=== PATIENT | male | born 1985 | race Two or more races ===

== ENCOUNTER 2017-11-24 20:36 | Emergency (ER) | payer BC, SELFPAY ==
[2017-11-24 20:38] VITALS: BP 112/89; PULSE 75; RESP 16; TEMP 36.6; O2SAT 98; BMI 21.4
[2017-11-24 21:00] LABS: Mucous, Urine 0 SEEN /hpf (<or=2+); Red Blood Cells-Urine 0 SEEN /hpf (0-5); Squamous Epithelial Cells - UA 0 SEEN /hpf (0-5)
[2017-11-24 21:02] LABS: Color, Urine Yellow (Yellow); Glucose, Dipstick Normal (Normal); Ketone-Dipstick 15 mg/dl (Negative); Leukocyte Esterase-Dipstick 25 /ul (Negative); Nitrite-Dipstick Negative (Negative); Occult Blood-Urine Negative /ul (Negative); Protein-Dipstick 15 mg/dl (Negative); Urine Bilirubin Dipstick Negative (Negative); Urine Clarity Sl. Cloudy (Clear); Urine Urobilinogen Normal (Normal)
[2017-11-24 21:10] LABS: Bacteria RARE /hpf (None Seen); White Blood Cells 0-5 SEEN /hpf (0-5)
--- NOTE | 2017-11-24 21:14 | CT_ITS ---
STUDY: CT ABDOMEN AND PELVIS WITH CONTRAST REASON FOR EXAM: Male, 32 years old. Mid upper abdominal pain. Nausea and vomiting. RADIATION DOSAGE (If Supplied By Facility): CTDIvol = ( 11.11 ) mGy, DLP = ( 443.51 ) mGycm TECHNIQUE: Transaxial images were obtained from the dome of the diaphragm to the symphysis pubis with oral contrast. 100ML ml of Isovue 300 contrast was administered. Sagittal and coronal images were reconstructed. # Of Images Including Paperwork: 337 Individualized dose optimization techniques were used for this CT. COMPARISON: None. FINDINGS: The visualized lung bases are unremarkable. The visualized portions of the heart are within normal limits. Normal liver. Normal gallbladder and extrahepatic biliary system. Normal spleen. Normal pancreas. Normal bilateral adrenal glands. Normal right kidney. Normal left kidney. Normal visualized stomach. Assessment of the stomach is limited by incomplete distention.. Normal small intestine. Normal colon. The appendix is visualized on axial images 80-91 and it appears normal.. Normal abdominal aorta. Normal inferior vena cava. Normal retroperitoneum. Normal urinary bladder. Normal abdominal wall. Normal osseous structures. CT/Abdomen/Pelvis WITH Contrast IMPRESSION: Normal enhanced CT of the abdomen and pelvis. Electronically Signed: Robert Valera MD at 0:06 EDT , Service support ,
[2017-11-24 22:07] LABS: Absolute Lymphocyte Count 2.46 X10^3/ul (0.83-4.51); Absolute Neutrophil Count 2.8 X10^3/uL (2.0-7.7); Basophil# 0.06 X10^3/uL; Eosinophil# 0.11 X10^3/uL; Eosinophils% 1.8 % (0-5); Hematocrit 45.5 % (40-54); Hemoglobin 16.2 g/dl (13.0-16.5); Lymphocyte # 2.46 X10^3/ul (4.0); Lymphocyte % 41.3 % (19-41); Mean Corp Hgb Conc 35.6 g/gl (32-36); Mean Corpuscular Hgb 30.9 pg (27.0-32.0); Mean Corpuscular Volume 86.7 fL (80-94); Mean Platelet Vol. 10.2 fl (6.2-12.0); Monocyte% 8.4 % (0-10); Neutrophil # 2.82 X10^3/uL (2.7-7.7); Neutrophil % 47.5 % (47-70); POSITIVE COUNT NO; POSITIVE DIFFERENTIAL NO; POSITIVE MORPHOLOGY NO; Platelet Count 242 K/mm3 (150-450); RBC Distribution Width CV 12.2 % (11.6-14.6); RBC Distribution Width SD 38.6 fl (35.1-43.9); Red Blood Count 5.25 M/mm3 (4.6-6.2)
[2017-11-24 22:21] LABS: ALB/GLOB Ratio 1.3 RATIO (0.9-2.4); AST(SGOT) 30 U/L (15-37); Alanine Aminotransfer ALT/SGPT 31 U/L (16-61); Albumin, Serum 4.3 g/dL (3.2-5.0); Alkaline Phosphatase 68 U/L (45-117); Anion Gap 10 (5-15); BUN 10 mg/dL (7-18); BUN/Creat Ratio 9.9 RATIO (10-20); Calcium,Total 9.2 mg/dL (8.5-10.1); Chloride 102 mmol/L (98-107); Creatinine, Serum 1.01 mg/dL (0.70-1.30); EST Glomerular Filtration Rate 91 mL/min (>60); Est Glom Filt Rate - Afr Amer 110 mL/min (>60); Estimated Creatinine Clearance 100.84 ml/min; Globulin 3.3 g/dL (2.2-4.2); Glucose 80 mg/dL (74-106); Lipase 60 U/L (73-393); Potassium 3.7 mmol/L (3.5-5.1); Protein, Total 7.6 g/dL (6.4-8.2); Sodium Level 139 mmol/L (136-145)
[2017-11-24 22:46] VITALS: RESP 16
--- NOTE | 2017-11-25 00:13 | ED.VISSUMM ---
- ER Visit Summary Date of Service: 11/25/17 Chief Complaint: Abdominal pain History of Present Illness: The patient is a 32 M who presents with abdominal pain. He complains of constipation for the past week. He has tried Ex-Lax and Gas-X at home. He complains of gas pains. He is still having flatus. He complains of diffuse abdominal cramping but has developed some increased epigastric pain for the past day. He reports nausea. He had one episode of emesis today. No fevers. Physical Examination: Afebrile vitals are normal next line moist mucous membranes Heart regular rate and rhythm Lungs are clear Abdomen soft nondistended he has some diffuse nonfocal tenderness he does not have guarding or rebound Alert Test Results: CBC BMP unremarkable. Total bilirubin slightly elevated at 1.4. Lipase normal. Urinalysis normal. CT of the abdomen and pelvis with oral and IV contrast is normal. Emergency Department Course and Treatment: Patient was given IV fluids and antiemetics. He is resting comfortably on reevaluation. At the time my reevaluation he was eating some chips and was well-appearing. I do believe this is all related to constipation. He was advised to try magnesium citrate or enema. He understands to return for new or worsening symptoms and will otherwise follow-up as an outpatient as needed and was discharged home. Treatment Plan: [] Disposition: Discharge Impression: Constipation This note was generated with [employer] dictation software. It may contain incorrect words, spelling, and punctuation that were not noted in review of the chart prior to signing ED Disposition - Plan for ED Patient: Chief Complaint: Abd Pain Referrals: Care Physician,No Primary [Primary Care Provider] -
--- NOTE | 2017-11-25 00:16 | ED.DEP ---
ED Disposition - Plan for ED Patient: Chief Complaint: Abd Pain Instructions: ED Constipation Referrals: Care Physician,No Primary [Primary Care Provider] -
[2017-11-25 00:23] VITALS: BP 97/84; PULSE 68; RESP 16; O2SAT 100
[2017-11-25 00:25] VITALS: BP 97/84; PULSE 68; RESP 16; O2SAT 100
== END 2017-11-25 00:26 | disposition home or self-care (01) ==
LOC: ED 21:43
PROVIDERS: Emergency Provider Emergency Medicine
DX: K59.00 Constipation, unspecified (principal)
CPT/HCPCS: 74177; 80053; 81001; 83690; 85025; 96374; 99284; Q9967; A4216; J2405

== ENCOUNTER 2018-08-02 04:30 | Observation (INO) | payer BC, SELFPAY ==
[2018-08-02] VITALS (8 sets, daily range): BP systolic 101–149; BP diastolic 64–106; PULSE 84–115; RESP 16–23; TEMP 36.5–36.7; O2SAT 98–100; BMI 24.0; BMI 23.0
--- NOTE | 2018-08-02 04:46 | ED.RN ---
PRIMARY LANGUAGE: TURKMEN
--- NOTE | 2018-08-02 04:52 | RAD_ITS ---
STUDY: X-RAY CHEST REASON FOR EXAM: Male, 33 years old. Chest discomfort TECHNIQUE: PA and lateral COMPARISON: None. FINDINGS: The lungs are clear and expanded. There is no demonstrated pleural abnormality. Normal size heart. Normal mediastinum and chris. Normal visualized pulmonary arteries. Normal visualized aortic arch and descending thoracic aorta. Normal visualized thoracic spine. Normal visualized ribs, clavicles, and shoulders. There is no demonstrated abnormality of the visualized soft tissue structures of the upper abdomen. RAD/Chest PA and Lateral IMPRESSION: Negative x-ray examination of the chest. Electronically Signed: Shaggy Duke, at 5:16 EDT Tel , Service support ,
--- NOTE | 2018-08-02 04:52 | EKG12_ITS ---
Test Reason : CP Blood Pressure : / mmHG Vent. Rate : 113 BPM Atrial Rate : 113 BPM P-R Int : 152 ms QRS Dur : 104 ms QT Int : 346 ms P-R-T Axes : 072 061 054 degrees QTc Int : 474 ms Sinus tachycardia Incomplete right bundle branch block Borderline ECG Confirmed by SANDIE CALIXTO, SILVANA ([id number]), video editor DENISSE MCMAHAN ([id number]) on 08/05/2018 1:41:21 PM Referred By: JENNYFER Confirmed By:SILVANA HOOPER MD
[2018-08-02 05:08] LABS: Hematocrit 42.5 % (40-54); Hemoglobin 14.9 g/dl (13.0-16.5); Mean Corpuscular Volume 85.9 fL (80-94); Red Blood Count 4.95 M/mm3 (4.6-6.2); White Blood Count 8.2 K/mm3 (4.4-11.0)
[2018-08-02 05:09] LABS: Absolute Lymphocyte Count 4.54 X10^3/ul (0.83-4.51); Absolute Neutrophil Count 2.7 X10^3/uL (2.0-7.7); Basophil# 0.06 X10^3/uL; Basophil% 0.7 % (0-1); Eosinophil# 0.28 X10^3/uL; Eosinophils% 3.4 % (0-5); Lymphocyte # 4.54 X10^3/ul (4.0); Lymphocyte % 55.3 % (19-41); Mean Corp Hgb Conc 35.1 g/gl (32-36); Mean Corpuscular Hgb 30.1 pg (27.0-32.0); Mean Platelet Vol. 10.2 fl (6.2-12.0); Monocyte# 0.63 X10^3/uL; Monocyte% 7.7 % (0-10); Neutrophil # 2.69 X10^3/uL (2.7-7.7); Neutrophil % 32.8 % (47-70); POSITIVE COUNT NO; POSITIVE DIFFERENTIAL NO; POSITIVE MORPHOLOGY NO; Platelet Count 246 K/mm3 (150-450); RBC Distribution Width CV 12.4 % (11.6-14.6); RBC Distribution Width SD 39.1 fl (35.1-43.9)
[2018-08-02] MEDS: 0.9% Normal Saline 1,000 ML 1000 ML IV (05:11)
[2018-08-02 05:16] LABS: Anion Gap 11 (5-15); BUN 11 mg/dL (7-18); BUN/Creat Ratio 8.3 RATIO (10-20); Calcium,Total 8.9 mg/dL (8.5-10.1); Chloride 103 mmol/L (98-107); Creatinine, Serum 1.33 mg/dL (0.70-1.30); EST Glomerular Filtration Rate 66 mL/min (>60); Est Glom Filt Rate - Afr Amer 80 mL/min (>60); Estimated Creatinine Clearance 81.57 ml/min; Glucose 133 mg/dL (74-106); Potassium 3.1 mmol/L (3.5-5.1); Sodium Level 140 mmol/L (136-145)
[2018-08-02 05:39] LABS: Lactic Acid 2.4 mmol/L (0.4-2.0)
--- NOTE | 2018-08-02 05:57 | ED.VISSUMM ---
- ER Visit Summary Date of Service: 08/02/18 Chief Complaint: Tachycardia/chest pain History of Present Illness: The patient is a 33 M who presents with fast heart rate and chest pain. He initially became ill about 4 weeks ago with a URI-like illness, congestion rhinorrhea cough. The symptoms improved but he continues to have some chest congestion and nonproductive cough. He is also had some diarrhea. Intermittently he has had left-sided chest pain which he describes as tightness for about 4 days. Tonight he also felt like his body was tingling and he developed palpitations and a sensation of his heart racing. He checked his Fitbit and his heart rate was ranging anywhere from 70-120. Physical Examination: Heart rate 115 respiratory rate 23 afebrile blood pressure 146/106 Moist mucous membranes Heart regular tachycardia Lungs are clear Abdomen soft Extremities nontender Diaphoretic Alert Test Results: EKG shows sinus tachycardia at a rate of 113 with an incomplete right bundle. Labs notable for potassium 3.1. Troponin negative. Lactic acid 2.4. Blood cultures were sent. Chest x-ray is negative. Emergency Department Course and Treatment: Patient was treated with IV fluids. My initial concern was for pneumonia with sepsis. However his x-ray is normal. He does not have leukocytosis or fever. He does have a mild lactic acidosis of uncertain significance. On reevaluation he has improved. Heart rate has improved. However I do feel he should to be admitted for hospital observation for further monitoring/work-up. I spoke to the hospitalist who also requested add on a drug screen which is been ordered. Patient admitted to the PCU for observation Treatment Plan: [] Disposition: Admit Impression: Chest pain Systemic inflammatory response syndrome Lactic acidosis This note was generated with [employer] dictation software. It may contain incorrect words, spelling, and punctuation that were not noted in review of the chart prior to signing ED Disposition - Plan for ED Patient: Referrals: Care Physician,No Primary [Primary Care Provider] -
--- NOTE | 2018-08-02 05:58 | ED.RN ---
lab called with critical lab results. lactic acid 2.4. Dr. Russ made aware. no new orders at this time
--- NOTE | 2018-08-02 06:14 | HP.PCM_ITS ---
Problem List (1) Mild lactic acidosis. Status: Acute (2) Dehydration Status: Acute (3) Hypokalemia Status: Acute (4) Sinus tachycardia Status: Acute (5) Palpitation Status: Acute (6) Atypical chest pain Status: Acute History of Present Illness Date of Admission: 08/02/18 Chief Complaint: Palpitation, dizziness, chest discomfort. The patient is a 33 year old M with no past medical history presented to the emergency room because of palpitation and chest discomfort. His symptoms started around 4 days ago with palpitation, heart rate goes from 60s to 70s up to 120s intermittently that he has been seeing on his Fitbit watch, associated with dizziness and lightheadedness and since yesterday, he started having left- sided chest discomfort. He described this chest pain as mild dull ache, 1-2 out of 10 in severity, not radiating, continued to have intermittent palpitation with it as well as dizzy spells, associated with mild shortness of breath and without aggravating or relieving factors. He mentioned that 4 weeks ago, he had cold symptoms with congestion, cough and his symptoms improved but he continued to have some cough without sputum production. He denies fever or chills. He denied abdominal pain, constipation or diarrhea. He denied use of recreational drugs. He denied family history of premature CAD. In the emergency department, patient was afebrile, tachycardic, blood pressure was slightly elevated, pulse ox was 100% on room air. Routine blood work was remarkable for potassium of 3.1, creatinine of 1.33. EKG revealed sinus tachycardia, no acute ischemic changes. Troponin was negative. Lactic acid was 2.4. Chest x-ray showed no acute infiltrate or consolidation. He is being admitted for atypical chest pain for evaluation, mild lactic acidosis of unclear etiology as well as tachycardia, hypokalemia and dehydration. Past Medical History Allergies No Known Allergies Allergy (Verified 08/02/18 04:38) Home Medications: Ambulatory Orders Medication Instructions Recorded NK 11/24/17 Surgical History: no surgical history Psychiatric History: No pertinent psych hx Lives: Spouse/ Significant Other Smoking Status: Never smoker Tobacco Use: Cigarettes Alcohol: Rare Drugs: None - *Family History Maternal History Items: No pertinent history, - - No family history of premature CAD, hypertension or diabetes. Paternal History Items: No pertinent history Review of Systems Constitutional: Denies: Anorexia, Chills, Fever, Weakness Eyes: Denies: Blurred vision, Double vision, Drainage, Redness HEENT: Denies: Difficulty Hearing, Ear Pain, Eye Pain, Nasal Congestion, Sore Throat Cardiovascular: Reports: Chest Pain, Chest Tightness, Light Headedness, Palpitations. Denies: Orthopnea, Syncope Respiratory: Reports: Cough, Shortness of Breath. Denies: Hemoptysis, Pleuritic Pain, Sputum production, Wheezing Gastrointestinal: Denies: Abdominal Pain, Constipation, Diarrhea, Nausea, Vomit ing Genitourinary: Denies: Dysuria, Frequency, Hematuria Musculoskeletal: Denies: Arm Pain, Back Pain, Foot Pain Skin: Denies: Dryness, Rash Neurological: Denies: Balance problems, Blurred vision, Double vision, Change in Speech, Slurred speech, Confusion, Headaches, Incoordination, Numbness, Tingling Psychiatric: Denies: Anxiety, Depression Endocrine: Denies: Change in Body Habitus, Polydipsia, Polyuria VTE Information - Inpt Only VTE Present on Admission: No VTE Mechan Device Prophylaxis: None VTE Pharm Prophylaxis ordered?: No Patient Problems: Active and Suspected Problems Mild lactic acidosis. (Acute) Dehydration (Acute) Hypokalemia (Acute) Sinus tachycardia (Acute) Palpitation (Acute) Atypical chest pain (Acute) - Physical Exam General: Alert, Oriented x3, Cooperative, No apparent distress HEENT: Atraumatic, PERRLA, EOMI, Normocephalic Oral: Moist Mucosa Neck: Supple, No JVD, Negative Carotid Bruits, Trachea Midline, Thyroid Normal Size and Texture Lungs: Clear to auscultation, Normal air movement, No rhonchi, No wheeze, No rales, Diminished Cardiovascular: Regular rate, Regular Rhythm, Normal S1, Normal S2, No murmurs, PMI Normal, Tachycardic Abdomen: Bowel Sounds Present, Soft, Non Tender, Non-Distended, No Hepato- splenomegaly Extremities: No clubbing, No cyanosis, No edema Skin: No rashes, No breakdown Lymphatic: No Cervical, Supraclavicular, or Inguinal Adenopathy Neurological: Cranial nerves II-XII grossly intact, Motor Exam 5/5 strength throughout Psych/Mental Status: Normal Affect, Appropriate, Alert and oriented to time, place, person, mood and affect Vital Signs Temp Pulse Resp BP Pulse Ox 98.1 F 88 16 149/101 H 100 08/02/18 04:31 08/02/18 06:07 08/02/18 06:07 08/02/18 06:07 08/02/18 06:07 Oxygen Delivery Method Room Air Weight: 167 lb 15.876 oz Body Mass Index (BMI) 24.0 Laboratory Tests Past 24 Hrs 08/02/18 08/02/18 08/02/18 04:40 04:40 05:06 WBC 8.2 RBC 4.95 Hgb 14.9 Hct 42.5 MCV 85.9 MCH 30.1 MCHC 35.1 RDW 12.4 RDW Differential 39.1 Plt Count 246 MPV 10.2 Immature Gran % (Auto) 0.100 Neut % (Auto) 32.8 L Lymph % (Auto) 55.[address] [facility] % (Auto) 7.7 Eos % (Auto) 3.4 Baso % (Auto) 0.7 Absolute Neuts (auto) 2.7 Absolute Lymphs (auto) 4.54 H Total Counted Not Reportable Sodium 140 Potassium 3.1 L Chloride 103 Carbon Dioxide 26.0 Anion Gap 11 BUN 11 Creatinine 1.33 H Estim Creat Clear Calc 81.57 Est GFR (MDRD) Af Amer 80 Est GFR (MDRD) Non-Af 66 BUN/Creatinine Ratio 8.3 L Glucose 133 H Lactic Acid 2.4 H Calcium 8.9 Troponin I < 0.015 Clinical Impression(s) from Imaging Studies Chest X-Ray 08/02/18 04:52 IMPRESSION: Negative x-ray examination of the chest. Electronically Signed: Shaggy Duke, at 5:16 EDT Tel , Service support , Assessment/Plan All Active Problems Mild lactic acidosis. (Acute) Dehydration (Acute) Hypokalemia (Acute) Sinus tachycardia (Acute) Palpitation (Acute) Atypical chest pain (Acute) This is a 33 years old male patient presented to the emergency room because of palpitation, dizziness and chest discomfort and he is being admitted for evaluation for atypical chest pain and also found to have sinus tachycardia on EKG, hypokalemia, dehydration and mild lactic acidosis. #1 atypical chest pain/discomfort: Patient has no risk factors for CAD. No family history of premature CAD. His CLAYTON score is 0. EKG revealed sinus tachycardia, no acute changes. First troponin is negative. Patient is tachycardic, blood pressure slightly elevated, afebrile. Chest x-ray showed no acute findings. Plan: Admit to PCU for observation, cardiac monitoring, serial cardiac enzymes, repeat EKG tomorrow morning, stress echocardiogram, urine drug screen, IV fluids, Tylenol as needed, IV antiemetics. #2 sinus tachycardia: Unclear etiology. EKG revealed sinus tachycardia, no other acute changes. Chest x-ray without pneumonia. His lactic acid was 2.4. No obvious source of infection. No leukocytosis on CBC. Plan: IV fluids, check d-dimer, TSH, serum magnesium, replace potassium, repeat BMP tomorrow morning. #3 mild lactic acidosis: Unclear etiology. Patient is afebrile, no leukocytosis. Chest x-ray without acute findings. Patient denies urinary symptoms. Plan: IV fluids, repeat lactic acid in 3 hours, repeat CBC and BMP tomorrow morning. No indication to start IV antibiotics at this time. #4 dehydration/hypokalemia: Admission creatinine is 1.33, unknown baseline. Potassium is 3.1. Plan: IV fluids with normal saline, input output chart, K. Dur 60 mEq p.o. x1, check serum magnesium, repeat BMP tomorrow morning. #5 DVT prophylaxis: Low risk patient, no prophylaxis indicated. This note was generated with [employer] dictation software. It may contain incorrect words, spelling, and punctuation that were not noted in checking the note before signing. Code Visit OBSV E&M: 20784 Initial observation care L3
--- NOTE | 2018-08-02 06:29 | STEWCON_ITS ---
Reason For Study: CHEST PAIN Stress Results Protocol: Stress Echocardiogram Maximum Predicted HR: 187 bpm Target HR: 159 bpm % Maximum Predicted HR: 93 % DurationHeart Rate Stage (mm:ss) (bpm) BP Comment BASELINE 71 114/70DILUTED DEFINITY 2CC USED HIGINIO PROTOCOL- STAGE 1 3:00 100 110/68 HIGINIO PROTOCOL- STAGE 2 3:00 125 112/70 HIGINIO PROTOCOL- STAGE 3 3:00 146 128/72 HIGINIO PROTOCOL- STAGE 4 3:00 173 130/70NO CP RECOVERY 97 110/74 Stress Duration: 12:00 mm:ss Maximum Stress HR: 173 bpm METS: 13 Baseline Echocardiogram Findings Stress Echo Wall motion Data Resting WM Intermediate WM Stress WM Resting Wall Motion Wall Motion Stress All segments Normal. All segments Hyperkinetic. Ejection Fraction 60 %. Ejection Fraction 75 %. Stress Results Heart rate response: Appropriate Blood pressure response: Normal resting blood pressure-appropriate response Arrhythmias: None Functional capacity: Good Stopped secondary to: Dyspnea and leg discomfort. EKG Data ECG BASELINE:NSR. ECG STRESS: NO OBVIOUS ECG CHANGES. Symptoms with Stress No complaint of chest discomfort during exercise or recovery. Doppler Measurements & Calculations TR max lester: 210.7 cm/sec TR max P.8 mmHg Interpretation Summary Contrast injection performed NEGATIVE (ADEQUATE) STRESS ECHOCARDIOGRAM Ordering Physician: Jose Raul Manley Referring Physician: EL PCP Performed By: Aysha Bryant RDCS
[2018-08-02 06:35] LABS: Amphetamine Urine VISTA NEGATIVE (<1000 ng/mL); Barbiturate Urine VISTA NEGATIVE (< 200 ng/mL); Benzodiazepine Urine VISTA NEGATIVE (< 200 ng/mL); Cocaine Urine VISTA NEGATIVE (< 300 ng/mL); Ecstacy Urine VISTA NEGATIVE (< 500 ng/mL); Methadone Urine VISTA NEGATIVE (< 300 ng/mL); PCP Urine VISTA NEGATIVE (< 25 ng/mL); THC Urine VISTA NEGATIVE (< 50 ng/mL); Vista UDS pH Range 6
[2018-08-02] MEDS: 0.9% Normal Saline 1,000 ML 100 ML IV (06:39)
--- NOTE | 2018-08-02 06:42 | EKG12_ITS ---
Test Reason : CP ADMIT Blood Pressure : / mmHG Vent. Rate : 098 BPM Atrial Rate : 098 BPM P-R Int : 158 ms QRS Dur : 092 ms QT Int : 354 ms P-R-T Axes : 061 061 052 degrees QTc Int : 451 ms Normal sinus rhythm Normal ECG Confirmed by SANDIE CALIXTO, SILVANA ([id number]), videotape editor VIOLET EUBANKS ([id number]) on 08/06/2018 12:06:09 PM Referred By: Confirmed By:SILVANA HOOPER MD
[2018-08-02 06:51] LABS: D-Dimer Quantitative (DVT/PE) < 0.27 FEU/ug/m (0.27-0.49)
[2018-08-02 06:59] LABS: Magnesium 1.8 mg/dL (1.6-2.6); Thyroid Stim Hormone (TSH) 1.33 uIU/mL (0.358-3.74)
[2018-08-02 08:06] LABS: BNP,B-Type NATRIURETIC PEPTIDE 8.9 pg/mL (0-100)
[2018-08-02 09:11] LABS: Reflex Lactate? Y
--- NOTE | 2018-08-02 11:36 | DCINST_ITS ---
- Discharge Diagnoses Current Active Problems: Current Active and Chronic Problems Mild lactic acidosis. (Acute) Dehydration (Acute) Hypokalemia (Acute) Sinus tachycardia (Acute) Palpitation (Acute) Atypical chest pain (Acute) You will use the following diet at home:: No restrictions Your food should be the consistency of: Regular Your liquids should be the consistency of: Regular/Thin Discharge Activity: Return to Normal Activity Allergies/Adverse Reactions: Allergies No Known Allergies Allergy (Verified 08/02/18 04:38) Medications to take at Discharge NK 11/24/17 Orders to be completed after discharge: 30 Day Event Recorder Hook-Up [[facility]] Time Frame: 08/02/18, Location: None Selected Primary Care Physician: Care Physician,No Primary [Primary Care Provider] - Please follow up with your Primary Care Physician in: 2 weeks Test Results: Test results from this visit will be discussed in further detail at your follow- up appointment, if applicable. Please Follow Up With: Nick Fleming MD - 30 day event recorder results When: 4 weeks
[2018-08-02 13:12] LABS: Lactic Acid 0.7 mmol/L (0.4-2.0)
--- NOTE | 2018-08-02 14:13 | DS.PCM_ITS ---
<Luis Ashton - Last Filed: 08/02/18 14:13> Discharge Date and Diagnosis Date of Admission: 08/02/18 Date of Discharge: 08/02/18 - Primary Discharge Diagnosis Chest pain-musculoskeletal Palpitations-unclear etiology Hospital Course and Treatment Imaging Results: 08/02/18 06:29 Stress Test Echo W/Contrast [ECHO] Urgent NEGATIVE (ADEQUATE) STRESS ECHOCARDIOGRAm RAD/Chest PA and Lateral IMPRESSION: Negative x-ray examination of the chest. Operations: None Procedures: Stress test - Stress test with echo Summary of Care Provided: Hospital course: The patient is a 33 year old M with no past medical history who presented to the emergency room with complaints of palpitations, dizziness, chest discomfort. He had noted the day of presentation that he was sitting still and suddenly his heart was racing, he looked at his heart rate tracker and it was in the 120 range, even though his activity had not changed. He had also had over the past several weeks multiple episodes where he felt his heart racing with no apparent cause where he would also become dizzy and lightheaded, fatigued, short of breath. He has no history of heart disease. He did chest pain on the left side described as a dull aching 1-2 out of 10 in severity with no radiation. In the emergency room he had a negative EKG, lactic acid was elevated, mildly elevated creatinine the potassium was low, chest x-ray was low, troponin was negative. He was admitted for chest pain work-up. He was placed on telemetry and had no events overnight. Troponin was negative x3, BNP was negative, TSH negative, tox screen negative. He underwent a stress echo and had no evidence of ischemia. He did not have any palpitations after admission. Due to his symptoms he was felt that he should have a 30-day event monitor at discharge. This was arranged for him and Dr. Fleming going to read at follow-up. Patient was discharged home will need to follow-up with PCP in 1 to 2 weeks, follow-up with Dr. Fleming in 4 weeks. This patient was seen by Luis Ashton PA-C under the supervision of Doctor Glover. [] - Physical Exam General: Alert, Oriented x3, Cooperative HEENT: Atraumatic, PERRLA, EOMI, Normocephalic Neck: Supple, No JVD, Negative Carotid Bruits Lungs: Clear to auscultation, Normal air movement Cardiovascular: Regular rate, No murmurs Abdomen: Bowel Sounds Present, Soft, Non Tender Extremities: No edema, Capillary Refill Less than 3 Seconds Skin: No rashes, No breakdown Musculoskeletal: No Tenderness to Palpation of Joints or Extremities Neurological: Cranial nerves II-XII grossly intact Psych/Mental Status: Normal Affect, Appropriate, Alert and oriented to time, place, person, mood and affect Vital Signs Temp Pulse Resp BP Pulse Ox 97.9 F 84 16 101/64 98 08/02/18 12:30 08/02/18 12:30 08/02/18 12:30 08/02/18 12:30 08/02/18 12:30 Oxygen Delivery Method Room Air Weight: 160 lb 7.944 oz Body Mass Index (BMI) 23.0 Intake and Output for Last 24 Hours 07/31/18 08/01/18 08/02/18 23:59 23:59 23:59 Intake Total 336 / 336 Balance 336 / 336 Laboratory Tests Past 24 Hrs 08/02/18 08/02/18 08/02/18 04:40 04:40 04:40 WBC 8.2 RBC 4.95 Hgb 14.9 Hct 42.5 MCV 85.9 MCH 30.1 MCHC 35.1 RDW 12.4 RDW Differential 39.1 Plt Count 246 MPV 10.2 Immature Gran % (Auto) 0.100 Neut % (Auto) 32.8 L Lymph % (Auto) 55.3 H [place] % (Auto) 7.7 Eos % (Auto) 3.4 Baso % (Auto) 0.7 Absolute Neuts (auto) 2.7 Absolute Lymphs (auto) 4.54 H Total Counted Not Reportable D-Dimer Quant (PE/DVT) < 0.27 L Sodium 140 Potassium 3.1 L Chloride 103 Carbon Dioxide 26.0 Anion Gap 11 BUN 11 Creatinine 1.33 H Estim Creat Clear Calc 81.57 Est GFR (MDRD) Af Amer 80 Est GFR (MDRD) Non-Af 66 BUN/Creatinine Ratio 8.3 L Glucose 133 H Lactic Acid Calcium 8.9 Magnesium Troponin I < 0.015 B-Natriuretic Peptide TSH Urine Opiates Screen Urine Methadone Screen Ur Barbiturates Screen Ur Phencyclidine Scrn Ur Amphetamines Screen U Methamphetamin-MDMA U Benzodiazepines Scrn Urine Cocaine Screen U Cannabinoids Screen Ur Drug Screen Comment 08/02/18 08/02/18 08/02/18 04:40 04:40 05:06 WBC RBC Hgb Hct MCV MCH MCHC RDW RDW Differential Plt Count MPV Immature Gran % (Auto) Neut % (Auto) Lymph % (Auto) [place] % (Auto) Eos % (Auto) Baso % (Auto) Absolute Neuts (auto) Absolute Lymphs (auto) Total Counted D-Dimer Quant (PE/DVT) Sodium Potassium Chloride Carbon Dioxide Anion Gap BUN Creatinine Estim Creat Clear Calc Est GFR (MDRD) Af Amer Est GFR (MDRD) Non-Af BUN/Creatinine Ratio Glucose Lactic Acid 2.4 H Calcium Magnesium 1.8 Troponin I B-Natriuretic Peptide 8.9 TSH 1.33 Urine Opiates Screen Urine Methadone Screen Ur Barbiturates Screen Ur Phencyclidine Scrn Ur Amphetamines Screen U Methamphetamin-MDMA U Benzodiazepines Scrn Urine Cocaine Screen U Cannabinoids Screen Ur Drug Screen Comment 08/02/18 08/02/18 08/02/18 06:10 07:25 12:39 WBC RBC Hgb Hct MCV MCH MCHC RDW RDW Differential Plt Count MPV Immature Gran % (Auto) Neut % (Auto) Lymph % (Auto) [place] % (Auto) Eos % (Auto) Baso % (Auto) Absolute Neuts (auto) Absolute Lymphs (auto) Total Counted D-Dimer Quant (PE/DVT) Sodium Potassium Chloride Carbon Dioxide Anion Gap BUN Creatinine Estim Creat Clear Calc Est GFR (MDRD) Af Amer Est GFR (MDRD) Non-Af BUN/Creatinine Ratio Glucose Lactic Acid Calcium Magnesium Troponin I < 0.015 < 0.015 B-Natriuretic Peptide TSH Urine Opiates Screen NEGATIVE Urine Methadone Screen NEGATIVE Ur Barbiturates Screen NEGATIVE Ur Phencyclidine Scrn NEGATIVE Ur Amphetamines Screen NEGATIVE U Methamphetamin-MDMA NEGATIVE U Benzodiazepines Scrn NEGATIVE Urine Cocaine Screen NEGATIVE U Cannabinoids Screen NEGATIVE Ur Drug Screen Comment 08/02/18 12:39 WBC RBC Hgb Hct MCV MCH MCHC RDW RDW Differential Plt Count MPV Immature Gran % (Auto) Neut % (Auto) Lymph % (Auto) [place] % (Auto) Eos % (Auto) Baso % (Auto) Absolute Neuts (auto) Absolute Lymphs (auto) Total Counted D-Dimer Quant (PE/DVT) Sodium Potassium Chloride Carbon Dioxide Anion Gap BUN Creatinine Estim Creat Clear Calc Est GFR (MDRD) Af Amer Est GFR (MDRD) Non-Af BUN/Creatinine Ratio Glucose Lactic Acid 0.7 Calcium Magnesium Troponin I B-Natriuretic Peptide TSH Urine Opiates Screen Urine Methadone Screen Ur Barbiturates Screen Ur Phencyclidine Scrn Ur Amphetamines Screen U Methamphetamin-MDMA U Benzodiazepines Scrn Urine Cocaine Screen U Cannabinoids Screen Ur Drug Screen Comment Discharge Diet: No Restrictions Discharge Activity: Return to Normal Activity Home Medications: Medications to take at Discharge NK 11/24/17 Other Amb Orders: 30 Day Event Recorder Hook-Up [[facility]] Time Frame: 08/02/18, Location: None Selected Primary Care Physician: Care Physician,No Primary [Primary Care Provider] - Please follow up with your Primary Care Physician in: 2 weeks Please Follow Up With: Nick Fleming MD - 30 day event recorder results When: 4 weeks Disposition: Home Minutes spent on discharge:: 35 Patient Condition:: Stable Medical Necessity - Tobacco Use Smoking Status: Never smoker Tobacco Use: Non-smoker Meaningful Use Info Meaningful Use Diagnoses (Choose all that apply): None applicable <Chaparrita Glover - Last Filed: 08/02/18 15:50> Hospital Course and Treatment Summary of Care Provided: This patient was seen in conjunction with ALFREDO Ortiz. I have independently interviewed and examined the patient and reviewed pertinent historical, laboratory, and other data. Please refer to ALFREDO Ortiz note for his patient's presentation, findings, and recommendations. I have reviewed and his note and concur with his documentation 33-year-old male with no significant past medical history who comes in with complaints of dizziness, palpitations and chest discomfort. He had noted elevated heart rate on his Fitbit watch and he also became dizzy, felt fatigued and was short of breath. His initial EKG was unremarkable. Admitting blood work showed hypokalemia. Chest x-ray was unremarkable. Troponins were negative. He was monitored on telemetry bed with no acute events. He underwent tests stress echo that did not show any evidence of ischemia. He continued to be stable and was discharged home on a 30-day event monitor. He will follow-up with his primary care doctor and also with Dr. Fleming. On the day of discharge, he denied any new complaints, he felt improved. Physical Exam: Gen: Appears comfortable, not pale, not jaundiced CVS:HS I +II, regular, no murmurs RESP: CTA GI: BS present and normal, soft, nontender, no palpable organs EXT:No edema - Physical Exam Vital Signs Temp Pulse Resp BP Pulse Ox 97.9 F 84 16 101/64 98 08/02/18 12:30 08/02/18 12:30 08/02/18 12:30 08/02/18 12:30 08/02/18 12:30 Oxygen Delivery Method Room Air Weight: 72.8 kg Body Mass Index (BMI) 23.0 Intake and Output for Last 24 Hours 07/31/18 08/01/18 08/02/18 23:59 23:59 23:59 Intake Total 336 / 336 Balance 336 / 336 Laboratory Tests Past 24 Hrs 08/02/18 08/02/18 08/02/18 04:40 04:40 04:40 WBC 8.2 RBC 4.95 Hgb 14.9 Hct 42.5 MCV 85.9 MCH 30.1 MCHC 35.1 RDW 12.4 RDW Differential 39.1 Plt Count 246 MPV 10.2 Immature Gran % (Auto) 0.100 Neut % (Auto) 32.8 L Lymph % (Auto) 55.3 H [place] % (Auto) 7.7 Eos % (Auto) 3.4 Baso % (Auto) 0.7 Absolute Neuts (auto) 2.7 Absolute Lymphs (auto) 4.54 H Total Counted Not Reportable D-Dimer Quant (PE/DVT) < 0.27 L Sodium 140 Potassium 3.1 L Chloride 103 Carbon Dioxide 26.0 Anion Gap 11 BUN 11 Creatinine 1.33 H Estim Creat Clear Calc 81.57 Est GFR (MDRD) Af Amer 80 Est GFR (MDRD) Non-Af 66 BUN/Creatinine Ratio 8.3 L Glucose 133 H Lactic Acid Calcium 8.9 Magnesium Troponin I < 0.015 B-Natriuretic Peptide TSH Urine Opiates Screen Urine Methadone Screen Ur Barbiturates Screen Ur Phencyclidine Scrn Ur Amphetamines Screen U Methamphetamin-MDMA U Benzodiazepines Scrn Urine Cocaine Screen U Cannabinoids Screen Ur Drug Screen Comment 08/02/18 08/02/18 08/02/18 04:40 04:40 05:06 WBC RBC Hgb Hct MCV MCH MCHC RDW RDW Differential Plt Count MPV Immature Gran % (Auto) Neut % (Auto) Lymph % (Auto) [place] % (Auto) Eos % (Auto) Baso % (Auto) Absolute Neuts (auto) Absolute Lymphs (auto) Total Counted D-Dimer Quant (PE/DVT) Sodium Potassium Chloride Carbon Dioxide Anion Gap BUN Creatinine Estim Creat Clear Calc Est GFR (MDRD) Af Amer Est GFR (MDRD) Non-Af BUN/Creatinine Ratio Glucose Lactic Acid 2.4 H Calcium Magnesium 1.8 Troponin I B-Natriuretic Peptide 8.9 TSH 1.33 Urine Opiates Screen Urine Methadone Screen Ur Barbiturates Screen Ur Phencyclidine Scrn Ur Amphetamines Screen U Methamphetamin-MDMA U Benzodiazepines Scrn Urine Cocaine Screen U Cannabinoids Screen Ur Drug Screen Comment 08/02/18 08/02/18 08/02/18 06:10 07:25 12:39 WBC RBC Hgb Hct MCV MCH MCHC RDW RDW Differential Plt Count MPV Immature Gran % (Auto) Neut % (Auto) Lymph % (Auto) [place] % (Auto) Eos % (Auto) Baso % (Auto) Absolute Neuts (auto) Absolute Lymphs (auto) Total Counted D-Dimer Quant (PE/DVT) Sodium Potassium Chloride Carbon Dioxide Anion Gap BUN Creatinine Estim Creat Clear Calc Est GFR (MDRD) Af Amer Est GFR (MDRD) Non-Af BUN/Creatinine Ratio Glucose Lactic Acid Calcium Magnesium Troponin I < 0.015 < 0.015 B-Natriuretic Peptide TSH Urine Opiates Screen NEGATIVE Urine Methadone Screen NEGATIVE Ur Barbiturates Screen NEGATIVE Ur Phencyclidine Scrn NEGATIVE Ur Amphetamines Screen NEGATIVE U Methamphetamin-MDMA NEGATIVE U Benzodiazepines Scrn NEGATIVE Urine Cocaine Screen NEGATIVE U Cannabinoids Screen NEGATIVE Ur Drug Screen Comment 08/02/18 12:39 WBC RBC Hgb Hct MCV MCH MCHC RDW RDW Differential Plt Count MPV Immature Gran % (Auto) Neut % (Auto) Lymph % (Auto) [place] % (Auto) Eos % (Auto) Baso % (Auto) Absolute Neuts (auto) Absolute Lymphs (auto) Total Counted D-Dimer Quant (PE/DVT) Sodium Potassium Chloride Carbon Dioxide Anion Gap BUN Creatinine Estim Creat Clear Calc Est GFR (MDRD) Af Amer Est GFR (MDRD) Non-Af BUN/Creatinine Ratio Glucose Lactic Acid 0.7 Calcium Magnesium Troponin I B-Natriuretic Peptide TSH Urine Opiates Screen Urine Methadone Screen Ur Barbiturates Screen Ur Phencyclidine Scrn Ur Amphetamines Screen U Methamphetamin-MDMA U Benzodiazepines Scrn Urine Cocaine Screen U Cannabinoids Screen Ur Drug Screen Comment Code Visit OBSV E&M: 26156 Observation care discharge
== END 2018-08-02 11:37 | disposition home or self-care (01) ==
LOC: ED 05:19 → PCU 06:28
PROVIDERS: Admitting Provider Hospitalist; Emergency Provider Emergency Medicine; Visit Provider Internal Medicine
DX: R07.89 Other chest pain (principal); R19.7 Diarrhea, unspecified; R00.2 Palpitations; E87.2 Acidosis; E86.0 Dehydration; E87.6 Hypokalemia; R00.0 Tachycardia, unspecified; I45.10 Unspecified right bundle-branch block; R06.02 Shortness of breath
CPT/HCPCS: 36415; 71046; 80048; 80307; 83605; 83735; 83880; 84443; 84484; 85025; 85379; 87040; 93005; 93017; 93350; 96360; 96361; 99285; J7030; Q9957; A4216; C8928

== ENCOUNTER → 2018-08-02 13:07 | Outpatient (REF) | payer BC, SELFPAY ==
[2018-08-02 12:53] VITALS: BMI 24.0
== END ==
LOC: PSN 13:07
PROVIDERS: Visit Provider Internal Medicine Cardiovascular Disease
DX: E87.6 Hypokalemia (principal); R06.00 Dyspnea, unspecified
CPT/HCPCS: 93270